=== PATIENT | male | born 1945 | race Caucasian/White ===

== ENCOUNTER → 2019-04-16 | Outpatient (CLI) | payer BC ==
[2015-10-05 08:56] VITALS: BP 146/94
[~2019-04-16] MED LIST: ASCO10002 PO; ASPI-630 PO; CALC625T20 PO; CARV25TA2 PO; CHOL200059 PO; CLOP75TA PO; CYAN25008 PO; FAMO20TA5 PO; FURO40TA4 PO; GLIM1TAB2 PO; LATA2.5D3 EACHEYE; LISI-334 PO; METF10007 PO; MULT-460 PO; PARO20TA3 PO; POTA20TA12 PO; PRAV20TA2 PO; TERA5CAP3 PO; TIMO5DRO5 RIGHTEYE
--- NOTE | 2019-04-16 15:20 | RAD ---
Examination: Right Lower Extremity Venous Doppler Ultrasound History: Elevated d-dimer Comparison: None Procedure: Richards scale, color flow 2D and spectal waveform analysis images are obtained with and without compression in the area of the common femoral vein, superficial femoral vein - femoral vein junction, main femoral vein (superficial femoral vein) and popliteal vein. Veins of the proximal calf are also imaged. Findings: There is normal duplex flow, color flow and compressibility of all visualized vein segments. No evidence of deep venous thrombus is present. There is a cystic structure identified in the popliteal fossa measuring 2.7 cm likely a Juarez's cyst. Impression: 1. No evidence of DVT in the visualized right lower extremity venous system. 2. 2.7 cm Juarez's cyst identified in the right popliteal fossa. Electronically signed by: Gil White MD (04/16/2019 3:17 PM) [place] [id number]
== END | disposition home or self-care (01) ==
LOC: US 14:30
PROVIDERS: ATTEND Nurse Practitioner Family
DX: M71.21 Synovial cyst of popliteal space [Baker], right knee (principal); R79.1 Abnormal coagulation profile
CPT/HCPCS: 93971